=== PATIENT | female | born 1990 | race Caucasian/White ===

== ENCOUNTER 2020-12-10 12:29 | Emergency (ER) | payer OTHER ==
[2020-12-10] MEDS ORDERED: Ondansetron 4 MG/2 ML SDV IVPUSH ONE (12:59)
[2020-12-10] MEDS ORDERED: Sodium Chloride 0.9% 1,000 ML IV SCH (13:00)
[2020-12-10] MEDS ORDERED: Pantoprazole 40 MG Vial IVPUSH ONE (13:01)
[2020-12-10] MEDS ORDERED: Morphine 2 MG/ML SYRINGE IVPUSH ONE (13:12)
--- NOTE | 2020-12-10 14:08 | EDM.PDOC ---
ED HPI GENERAL MEDICAL PROBLEM - General Chief Complaint: Gastrointestinal Problem Stated Complaint: VOMITNIG Time Seen by Provider: 12/10/20 12:31 Source of Information: Reports: Patient History Limitations: Reports: No Limitations - History of Present Illness INITIAL COMMENTS - FREE TEXT/NARRATIVE: 30 yo female present to ER with N/V she does have celiac disease and is very s ensitive to gluten. She ate a muffin this AM that was suppose to be gluten free but she does not believe it actually was within 1.5 hours she began vomiting. sever stomach cramping. - Related Data Allergies Allergy/AdvReac Type Severity Reaction Status Date / Time No Known Allergies Allergy Verified 12/10/20 12:49 Home Meds: Home Meds Mesalamine [Lialda] 1.2 gm PO DAILY 12/10/20 [History] Past Medical History - Past Health History Medical/Surgical History: Denies Medical/Surgical History Gastrointestinal History: Reports: Celiac Disease Social & Family History - Tobacco Use Tobacco Use Status *Q: Never Tobacco User - Recreational Drug Use Recreational Drug Use: No ED ROS GENERAL - Review of Systems Review Of Systems: See Below Constitutional: Denies: Fever, Chills Respiratory: Denies: Shortness of Breath, Wheezing Cardiovascular: Denies: Chest Pain GI/Abdominal: Reports: Abdominal Pain, Nausea, Vomiting. Denies: Constipation, Diarrhea Skin: Denies: Rash ED EXAM, GI/ABD - Physical Exam Exam: See Below Exam Limited By: No Limitations General Appearance: Alert, WD/WN, Mild Distress Head: Atraumatic, Normocephalic Neck: Normal Inspection, Supple, Non-Tender Respiratory/Chest: No Respiratory Distress, Lungs Clear, Normal Breath Sounds, No Accessory Muscle Use, Chest Non-Tender. No: Crackles, Rhonchi, Wheezing Cardiovascular: Regular Rate, Rhythm, No Murmur GI/Abdominal Exam: Soft, Tender, Abnormal Bowel Sounds (hyperactive) Neurological: Alert, Oriented Psychiatric: Normal Affect, Normal Mood Skin Exam: Warm, Dry, Intact Course - Vital Signs Last Recorded V/S: Last Vital Signs Temp 36.4 C 12/10/20 12:55 Pulse 93 12/10/20 12:55 Resp 18 12/10/20 12:55 BP 116/66 12/10/20 12:55 Pulse Ox 96 12/10/20 12:55 - Orders/Labs/Meds Orders: Active Orders 24 hr Category Date Time Status Sodium Chloride 0.9% [Normal Saline] 1,000 ml Med 12/10/20 13:00 Active IV ASDIRECTED Medication Orders Sodium Chloride (Normal Saline) 1,000 mls @ 999 mls/hr IV ASDIRECTED MARGUERITE Last Admin: 12/10/20 13:09 Dose: 999 mls/hr Documented by: ERAN Meds: Medications Generic Name Dose Route Start Last Admin Trade Name Freq PRN Reason Stop Dose Admin Sodium Chloride 1,000 mls @ 999 mls/hr 12/10/20 13:00 12/10/20 13:09 Normal Saline IV 999 mls/hr ASDIRECTED MARGUERITE Administration Discontinued Medications Generic Name Dose Route Start Last Admin Trade Name Freq PRN Reason Stop Dose Admin Morphine Sulfate 1 mg 12/10/20 13:12 12/10/20 13:16 Morphine 2 Mg/Ml Syringe IVPUSH 12/10/20 13:13 1 mg ONETIME ONE Administration Ondansetron HCl 4 mg 12/10/20 12:59 12/10/20 13:10 Ondansetron 4 Mg/2 Ml Sdv IVPUSH 12/10/20 13:00 4 mg ONETIME ONE Administration Pantoprazole Sodium 40 mg 12/10/20 13:01 12/10/20 13:10 Pantoprazole 40 Mg Vial IVPUSH 12/10/20 13:02 40 mg ONETIME ONE Administration - Re-Assessments/Exams Free Text/Narrative Re-Assessment/Exam: 12/10/20 14:51 pt iv fluids and zofran settled the vomiting, morphine for severe stomach cramping. After 1 liter of fluids pt discharged home with tapering dose of prednisone as she also has ulcerated colitis and is worried that this severe of a reaction will exacerbate her colitis. She will be leaving tomorrow to start her trip home to [place]. Departure - Departure Time of Disposition: 14:08 Disposition: Home, Self-Care 01 Condition: Good Clinical Impression: Gastroenteritis, Celiac disease - Discharge Information *PRESCRIPTION DRUG MONITORING PROGRAM REVIEWED*: Not Applicable *COPY OF PRESCRIPTION DRUG MONITORING REPORT IN PATIENT JEFFERY: Not Applicable Instructions: Celiac Disease Referrals: PCP,None [Primary Care Provider] - Forms: ED Department Discharge Additional Instructions: zorfan as need every 8 hours if you feel that this has exacerbated your ulcerated colitis then start the prednisone taper Sepsis Event Note (ED) - Evaluation Sepsis Screening Result: No Definite Risk - Focused Exam Vital Signs: Vital Signs Temp Pulse Resp BP Pulse Ox 12/10/20 12:55 36.4 C 93 18 116/66 96 12/10/20 12:50 36.4 C 93 18 116/66 96 - My Orders Last 24 Hours: My Active Orders 12/10/20 13:00 Sodium Chloride 0.9% [Normal Saline] 1,000 ml IV ASDIRECTED - Assessment/Plan Last 24 Hours: My Active Orders 12/10/20 13:00 Sodium Chloride 0.9% [Normal Saline] 1,000 ml IV ASDIRECTED
== END 2020-12-10 14:20 | disposition home or self-care (01) ==
LOC: JP.ED 12:29
DX: K52.9 Noninfective gastroenteritis and colitis, unspecified (principal); K90.0 Celiac disease
CPT/HCPCS: 96374; 96375; 99283; C9113; J2270; J2405; J7030